=== PATIENT | female | born 1990 | race Caucasian/White ===

== ENCOUNTER 2019-01-05 14:51 | Emergency (ER) | payer MEDICAID ==
--- NOTE | 2019-01-05 15:36 | ER Document Report ---
ED Medical Screen (RME) - General Chief Complaint: Foot Pain Stated Complaint: FOOT PAIN Time Seen by Provider: 01/05/19 15:33 Primary Care Provider: SHEILA PETERSON MD [Primary Care Provider] - Follow up as needed TRAVEL OUTSIDE OF THE [place] IN LAST 30 DAYS: No - HPI Notes: 01/05/19 15:34 Patient is a 28-year-old female with a history of mental health disorders who presents complaining of pain to her distal dorsal right foot over the past couple days. Patient states that she started noticing redness and increased pain/swelling to that area recently. Pain does not radiate otherwise. No history of MRSA. No calf pain or ankle pain. Denies COOK, fever, neck pain, URI, CP, SOB, Abd pain, dysuria, back pain. I have treated and performed a rapid initial assessment of this patient. A comprehensive ED assessment and evaluation of the patient, analysis of test results and completion of medical decision making process will be conducted by additional ED providers. PHYSICAL EXAMINATION: GENERAL: Well-appearing, well-nourished and in no acute distress. A&Ox4. Answers questions appropriately. Rt foot: + erythema/warmth distal dorsal foot w/o obvious fluctuance, streaks, or purulence. + trace pitting edema associated. + tenderness. Rolf neg to rt leg. No LE asymmetry otherwise. - Related Data Allergies/Adverse Reactions: latex [Latex] Allergy (Verified 06/30/15 01:08) Past Medical History Past Surgical History: Reports: Hx Dilation and Curettage, Hx Tonsillectomy Physical Exam - Vital signs Vitals: Temp Pulse Resp BP Pulse Ox 99.0 F 118 H 18 139/89 H 96 01/05/19 15:06 01/05/19 15:06 01/05/19 15:06 01/05/19 15:06 01/05/19 15:06 Course - Vital Signs Vital signs: Temp Pulse Resp BP Pulse Ox 99.0 F 118 H 18 139/89 H 96 01/05/19 15:06 01/05/19 15:06 01/05/19 15:06 01/05/19 15:06 01/05/19 15:06 Doctor's Discharge - Discharge Referrals: SHEILA PETERSON MD [Primary Care Provider] - Follow up as needed
[2019-01-05 16:27] LABS: ABSOLUTE BASOPHILS # (AUTO) 0.1 10^3/uL (0.0-0.2); ABSOLUTE EOSINOPHILS # (AUTO) 0.1 10^3/uL (0.0-0.6); ABSOLUTE LYMPHOCYTES (AUTO) 1.9 10^3/uL (0.5-4.7); ABSOLUTE MONOCYTES (AUTO) 0.7 10^3/uL (0.1-1.4); ABSOLUTE NEUT (AUTO) 4.7 10^3/uL (1.7-8.2); BASOPHILS % (AUTO) 0.7 % (0-2); EOSINOPHILS % (AUTO) 1.7 % (0-6); HEMATOCRIT 37.8 % (36.0-47.0); HEMOGLOBIN 12.8 g/dL (12.0-15.5); MEAN CORPUSCULAR HEMOGLOBIN 29.7 pg (27.0-33.4); MEAN CORPUSCULAR HGB CONC 33.8 g/dL (32.0-36.0); MEAN CORPUSCULAR VOLUME 88 fl (80-97); MONOCYTES % (AUTO) 8.8 % (3-13); PLATELET COUNT 270 10^3/uL (150-450); RED CELL DISTRIBUTION WIDTH 13.3 % (11.5-14.0); SEGMENTED NEUTROPHILS % (AUTO) 63.8 % (42-78); TOTAL CELLS COUNTED % (AUTO) 100 %; WHITE BLOOD COUNT 7.4 10^3/uL (4.0-10.5)
--- NOTE | 2019-01-05 16:31 | RADIOLOGY REPORT (SQ) ---
EXAM DESCRIPTION: FOOT RIGHT COMPLETE COMPLETED DATE/TIME: 01/05/2019 4:17 pm REASON FOR STUDY: pain dorsal distal foot COMPARISON: None. NUMBER OF VIEWS: Three views. TECHNIQUE: AP, lateral and oblique radiographic images acquired of the right foot. LIMITATIONS: None. FINDINGS: MINERALIZATION: Normal. BONES: No acute fracture or dislocation. No worrisome bone lesions. JOINTS: No effusions. SOFT TISSUES: No soft tissue swelling. No foreign body. OTHER: No other significant finding. IMPRESSION: NEGATIVE STUDY OF THE RIGHT FOOT. NO RADIOGRAPHIC EVIDENCE OF ACUTE INJURY. TECHNICAL DOCUMENTATION: JOB ID: [id number] [employer]- All Rights Reserved Reading location - IP/workstation name: [email or web address]
[2019-01-05 16:44] LABS: ANION GAP 11 (5-19); BLOOD UREA NITROGEN 19 mg/dL (7-20); CALCIUM 9.6 mg/dL (8.4-10.2); CARBON DIOXIDE 26 mmol/L (22-30); CHLORIDE 103 mmol/L (98-107); GLUCOSE 94 mg/dL (75-110); SODIUM 140.1 mmol/L (137-145)
--- NOTE | 2019-01-05 18:52 | ER Document Report ---
ED General - General Chief Complaint: Foot Pain Stated Complaint: FOOT PAIN Time Seen by Provider: 01/05/19 15:33 Primary Care Provider: SHEILA PETERSON MD [Primary Care Provider] - Follow up as needed Mode of Arrival: Ambulatory Information source: Patient TRAVEL OUTSIDE OF THE [place] IN LAST 30 DAYS: No - HPI Patient complains to provider of: Right foot pain, decreased movement, worried about DVT Onset: Last week Onset/Duration: Sudden Quality of pain: Sharp Severity: Severe Pain Level: 5 Associated symptoms: denies: Chills, Fever Exacerbated by: Movement, Walking, Other - Weightbearing Relieved by: Denies Similar symptoms previously: No Recently seen / treated by doctor: No Notes: 28-year-old female coming in today with redness and soreness of right foot. No injury. Hurts to bear weight. Hurts to move. Extensive family history of blood clotting disorder causing DVTs. No chest pain or shortness of breath. - Related Data Allergies/Adverse Reactions: latex [Latex] Allergy (Verified 06/30/15 01:08) Past Medical History - General Information source: Patient - Social History Smoking Status: Current Every Day Smoker Family History: Reviewed & Not Pertinent Past Surgical History: Reports: Hx Dilation and Curettage, Hx Tonsillectomy Review of Systems - Review of Systems Notes: Constitutional: No fevers. No chills. EENT: No eye redness. No eye pain. No ear pain. No sore throat. Cardiovascular: No chest pain. No palpitations. Respiratory: No cough. No shortness of breath. No respiratory distress. Gastrointestinal: No abdominal pain. No nausea, vomiting, or diarrhea. Genitourinary: Atraumatic. No lesions. No pain. No discharge. Musculoskeletal: Positive right foot pain and swelling and redness Skin: No rash or lesions. Lymphatic: No swollen lymph nodes. Neurologic: No headache. No syncope. Psychiatric: No suicidal or homicidal ideation. Physical Exam - Vital signs Vitals: Temp Pulse Resp BP Pulse Ox 99.0 F 118 H 18 139/89 H 96 01/05/19 15:06 01/05/19 15:06 01/05/19 15:06 01/05/19 15:06 01/05/19 15:06 - Notes Notes: General: Well-developed, well-nourished. In no acute distress. Non-toxic appearing. Cardiac: Well-perfused. Regular rate and rhythm. No murmurs, rubs, or gallops. Pulmonary: No respiratory distress. No cyanosis. Bilateral lung fiels are clear to auscultation. Abdominal: Non-distended. Non-rigid. Bowels sounds are present in all four quadrants. No guarding or rebound. HEENT: Head is atraumatic. Conjunctivae not reddened. No tearing. PERRL. EOMI. Orbits atraumatic. No periorbital swelling or erythema. Oropharynx is without erythema, swelling, or exudates. Neck: Supple. No adenopathy. No meningismus. Dermatologic: Warm with good turgor. No rash. Atraumatic. Chest: Atraumatic. No chest wall tenderness to palpation. Musculoskeletal: Area of redness and warmth to the dorsal right foot measuring about 5 cm across the mid dorsal right foot. Decreased DP pulses in this foot compared to the other side. Mild soft tissue swelling of the dorsum of the right foot. Full range of motion. Distal neurovascular exam is intact Genitourinary: Examination deferred Neurologic: No gross neurologic deficits. Psychiatric: Normal mood. Course - Re-evaluation Re-evalutation: 01/05/19 18:51 X-rays negative. Labs look good so far. We will go ahead and check for DVT just to be thorough. 01/05/19 20:41 Labs reassuring. Wet read of DVT study is negative per tech who did the study. The redness on the foot could be arthritic or infectious. Favor infection. Will write prescription for Bactrim. Dairy take-home pack for pain. - Vital Signs Vital signs: Temp Pulse Resp BP Pulse Ox 99.0 F 118 H 18 139/89 H 96 01/05/19 15:06 01/05/19 15:06 01/05/19 15:06 01/05/19 15:06 01/05/19 15:06 - Laboratory Result Diagrams: 01/05/19 16:01 01/05/19 16:01 Discharge - Discharge Clinical Impression: Cellulitis of foot Condition: Good Disposition: HOME, SELF-CARE Instructions: Cellulitis ([facility]) Prescriptions: Sulfamethoxazole/Trimethoprim [Bactrim Ds Tablet] 1 tab PO Q12H 10 Days #20 tablet Referrals: [facility] [Provider Group] - Follow up as needed
[2019-01-05] MEDS ORDERED: SULFAMETHOXAZOLE/TRIMETHOPRIM 800-160 MG TABLET PO ONE (20:44)
[2019-01-05] MEDS ORDERED: HYDROCODONE/ACETAMINOPHEN 5-325 MG (6 TAB/ER DISP) PO PRN (20:45)
[2019-01-05 21:18] VITALS: BP 123/81
--- NOTE | 2019-01-06 14:10 | XCELERA REPORT ---
[address] [place] [facility] [id number] Lower Extremity Venous Evaluation Procedure: Color flow and duplex imaging of the veins of the right lower extremity as well as the left Common Femoral vein. Right Sided Venous Evaluation Normal vessel filling wall to wall, compression and augmentation as well as Colour flow down to the infrageniculate veins. Left Sided Venous Evaluation The left common femoral vein is fully compressible. Spontaneous and phasic flow is present in the left common femoral vein. Interpretation Summary No duplex evidence of DVT or obstruction in the right lower extremity nor in the left Common Femoral vein. Name: KERMIT ESTEVEZ Age: 28 yrs Gender: Female : 1990 Patient Status: Emergency Patient Location: ER Study Date: 01/05/2019 07:52 PM Reason For Study: right leg Ordering Physician: GWEN RONDON Performed By: Shayy Bravo : GWEN RONDON > Shashi Dunbar
== END 2019-01-05 21:15 | disposition home or self-care (01) ==
LOC: ER 14:51
DX: L03.119 Cellulitis of unspecified part of limb (principal); M79.671 Pain in right foot; F17.200 Nicotine dependence, unspecified, uncomplicated; Z91.040 Latex allergy status; Z83.2 Family history of diseases of the blood and blood-forming organs and certain disorders involving the immune mechanism
CPT/HCPCS: 99284; 36415; 85025; 80048; 93971 ×2; 73630; J3490

== ENCOUNTER 2020-07-23 13:08 | Emergency (ER) | payer MEDICAID ==
[2020-07-23 13:22] VITALS: BP 130/84
== END 2020-07-23 14:24 | disposition left against medical advice (07) ==
LOC: ER 13:08
DX: Z53.21 Procedure and treatment not carried out due to patient leaving prior to being seen by health care provider (principal)